=== PATIENT | female | born 1975 | race American Indian/Alaskan Native ===

== ENCOUNTER 2017-12-15 21:22 | Emergency (ER) | payer MEDICARE ==
--- NOTE | 2017-12-15 22:31 | XRay Report ---
FINAL REPORT PROCEDURE: XR HIP 2-3V LT TECHNIQUE: LEFT hip radiographs, AP and lateral views. HISTORY: left hip pain COMPARISON: 09/13/2015 FINDINGS: The there is osseous deformity of the proximal femur at the femoral neck region into the femoral head region. No acute fracture or dislocation is seen. Subchondral cyst formation identified in the femoral head and femoral neck region on the left. No evidence of a fracture or dislocation. IMPRESSION: Advanced degenerative arthritic changes of the left hip. No acute fracture dislocation..
--- NOTE | 2017-12-15 22:34 | XRay Report ---
FINAL REPORT PROCEDURE: XR SHOULDER 2+V LT TECHNIQUE: LEFT shoulder radiographs including AP views in internal and external rotation. CPT 63752 HISTORY: left shoulder pain COMPARISON: No prior studies are available for comparison. FINDINGS: Fracture (s) and/or Dislocation(s): None . Joint space(s): Mild spur formation off the osseous structures.. Soft tissues: Normal . Bone mineralization: Normal . Foreign bodies: None . IMPRESSION: No evidence of an acute fracture dislocation. Mild arthritis
--- NOTE | 2017-12-16 02:59 | Emergency Department Report ---
ED Extremity Problem HPI - General Chief complaint: Extremity Injury, Lower Stated complaint: L HIP L SHOULDER PAIN POPPING OUT OF PLACE Time Seen by Provider: 12/16/17 02:05 Source: patient, family Mode of arrival: Ambulatory Limitations: No Limitations, Physical Limitation - History of Present Illness Initial comments: Patient here reports that she was just diagnosed with deformity of the left hip last month. She is to believe her hip is dislocated and also left shoulder pain. Patient says she has orthopedic doctor or where she went [facility]. She said she was advised that she needs to have surgery. Her pain is 8 out of 10 to left hip and toward attend to left shoulder. Denies any numbness or T-wave to extremities. Denies tobacco pain or trauma. Patient also has blood pressure of 153/101 and has a history of arthritis and hypertension. She also has a history of genital herpes. She's had right rotator cuff surgery and a right arthroscopic knee. Pain is better at rest worse with movement. No medication taken she says she just came to the emergency room to get treated for her pain. Denies any new injuries. Pain is achy to hip and shoulder MD Complaint: joint paint, other (chronic and ongoing) -: Gradual, month(s) (patient with arthritis for many months. She has chronic pain.) Location: left, upper extremity, lower extremity, other (hip and shoulder) History of Same: Yes -: No myalgia, Yes arthralgia, No fever, No associated dyspnea, No associated chest pain Radiation: none Severity scale (0 -10): 8 Quality: aching Consistency: intermittent Improves with: rest Worsens with: weight bearing, walking Associated Symptoms: arthralgias. denies: chest pain, shortness of breath, fever, myalgias, rash - Related Data Previous Rx's Medication Instructions Recorded Last Taken Type Acetaminophen/Codeine [Tylenol #3] 1 tab PO Q6H PRN #10 tab 10/17/15 Unknown Rx Doxycycline [Vibramycin CAP] 100 mg PO Q12HR #28 capsule 10/17/15 Unknown Rx metroNIDAZOLE [Flagyl] 500 mg PO Q12HR #14 tab 10/17/15 Unknown Rx Acetaminophen/Codeine [Tylenol 1 tab PO Q6H PRN #8 tab 12/16/17 Unknown Rx /Codeine # 3 tab] Allergies Allergy/AdvReac Type Severity Reaction Status Date / Time ketorolac tromethamine Allergy Itching Verified 09/13/15 14:32 [From Toradol] tramadol Allergy Unknown Verified 09/13/15 14:32 ED Review of Systems ROS: Stated complaint: L HIP L SHOULDER PAIN POPPING OUT OF PLACE Other details as noted in HPI Comment: All other systems reviewed and negative Constitutional: no symptoms reported Respiratory: no symptoms reported Cardiovascular: denies: chest pain, palpitations, dyspnea on exertion, edema, syncope, paroxysmal nocturnal dyspnea Gastrointestinal: denies: abdominal pain, nausea, vomiting Genitourinary: denies: dysuria, hematuria, discharge Musculoskeletal: arthralgia. denies: back pain, joint swelling, myalgia Skin: denies: rash Neurological: denies: headache, numbness, paresthesias, confusion, abnormal gait , vertigo ED Past Medical Hx - Past Medical History Previous Medical History?: Yes Hx Hypertension: Yes Hx Arthritis: Yes Additional medical history: Genital Herpes - Surgical History Past Surgical History?: Yes Additional Surgical History: Right Rotator Cuff surgery. Right Arthroscopy - Social History Smoking Status: Current Every Day Smoker Substance Use Type: None - Medications Home Medications: Home Medications Medication Instructions Recorded Confirmed Last Taken Type Acetaminophen/Codeine [Tylenol #3] 1 tab PO Q6H PRN #10 tab 10/17/15 Unknown Rx Doxycycline [Vibramycin CAP] 100 mg PO Q12HR #28 capsule 10/17/15 Unknown Rx metroNIDAZOLE [Flagyl] 500 mg PO Q12HR #14 tab 10/17/15 Unknown Rx Acetaminophen/Codeine [Tylenol 1 tab PO Q6H PRN #8 tab 12/16/17 Unknown Rx /Codeine # 3 tab] ED Physical Exam - General Limitations: No Limitations, Physical Limitation General appearance: alert, in no apparent distress - Head Head exam: Present: atraumatic, normocephalic, normal inspection - Eye Eye exam: Present: normal appearance, PERRL, EOMI Pupils: Present: normal accommodation - ENT ENT exam: Present: normal exam, normal orophraynx, mucous membranes moist - Neck Neck exam: Present: normal inspection, full ROM, other (no C-spine tenderness). Absent: tenderness, lymphadenopathy - Respiratory Respiratory exam: Present: normal lung sounds bilaterally. Absent: respiratory distress, chest wall tenderness - Cardiovascular Cardiovascular Exam: Present: regular rate, normal rhythm, normal heart sounds - GI/Abdominal GI/Abdominal exam: Present: soft, normal bowel sounds. Absent: distended, tenderness, guarding, rebound, rigid - Extremities Exam Extremities exam: Present: normal inspection, full ROM, normal capillary refill , other (no clubbing, cyanosis or edema to extremities. No neurovascular compromise. +2 pulses all extremities. No bony deformities. Patient with full range of motion to hips and shoulders but reports pain with movement. +5 strength in all extremities except for left hip with +4 strength. She has chronic arthritis and ambulated with a cane and has a limp when she walks..). Absent: tenderness, pedal edema, joint swelling, calf tenderness - Back Exam Back exam: Present: normal inspection, full ROM. Absent: tenderness, CVA tenderness (R), CVA tenderness (L), muscle spasm, paraspinal tenderness, vertebral tenderness, rash noted - Neurological Exam Neurological exam: Present: alert, oriented X3, abnormal gait (patient with abnormal gait which is chronic from chronic arthritis in her left hip. She ambulates with a cane and has a limp.), reflexes normal, other (patient without any joint abnormality, or effusion. She has minimal tenderness to left hip without any erythema. No swelling noted to joint joints. She has good color, sensation, temperature to joints and normal range of motion to all joints except for her hip where she has pain with range of motion.). Absent: motor sensory deficit (no sensory deficit but she does have +4 strength to left lower extremity due to chronic hip pain but 5/5 strength in all other extremities.) - Psychiatric Psychiatric exam: Present: normal affect, normal mood - Skin Skin exam: Present: warm, dry, intact, normal color. Absent: rash ED Course Vital Signs 12/16/17 01:19 Temperature 99.3 F Pulse Rate 81 Respiratory 18 Rate Blood Pressure 153/101 [Left] O2 Sat by Pulse 97 Oximetry Vital Signs 12/16/17 12/16/17 12/16/17 01:19 03:17 03:36 Temperature 99.3 F Pulse Rate 81 Respiratory 18 18 Rate Blood Pressure 153/101 [Left] Blood Pressure 152/98 [Right] O2 Sat by Pulse 97 Oximetry - Reevaluation(s) Reevaluation #1: 12/16/17 03:19 Patient given Tylenol 3 2 tablets and Decadron 10 mg IM in emergency room for chronic pain. ED Medical Decision Making - Radiology Data Radiology results: report reviewed X-ray of left shoulder reveals no evidence of an acute fracture or dislocation but mild arthritis. Mild spur formation off the osseous structure. X-ray of left hip reveals advanced degenerative arthritis changes of the left hip. No acute fracture dislocation. Subchondral cyst formation identified in the femoral head which is not new patient was already diagnosed by orthopedic doctor also in the femoral neck region. - Medical Decision Making ED course:pt here for flareup of chronic left hip and shoulder pain. She has been [facility] and x-ray of her left shoulder reveals mild arthritis with some mild spur formation of the osseous structure and x-ray of the left hip reveals patient with degenerative arthritis no fracture or dislocation. She also have chronic some chondral cyst formation in the femoral head and femoral neck region on the left. Patient said that she was taking tramadol before but it didn't help her. I discussed with her that she has chronic pain and due to arthritis and weather change that can affect flareup of her pain. I discussed here could only give her medication in the emergency room and she is still have to follow up with her orthopedic doctor regarding in pain management. Patient given Tylenol No. 3 2 tablets and Decadron 10 mg IM in emergency room. She is ambulatory but uses a cane to ambulate due to chronic hip pain. Patient discharged home in stable condition with prescription for Tylenol 3 6 tablets and to follow up with orthopedic doctor. She was understanding of x-ray results and treatment plan. Pt is not allergic to Ultram she just that it doesn't work for her when she takes it. Critical care attestation.: If time is entered above; I have spent that time in minutes in the direct care of this critically ill patient, excluding procedure time. ED Disposition Clinical Impression: Arthralgia of multiple sites, Subchondral cyst, Elevated blood pressure reading with diagnosis of hypertension Osteoarthritis of multiple joints Qualifiers: Osteoarthritis type: unspecified Qualified Code(s): M15.9 - Polyosteoarthritis , unspecified Disposition: DC-01 TO HOME OR SELFCARE Is pt being admited?: No Does the pt Need Aspirin: No Condition: Stable Instructions: Osteoarthritis (ED), Arthralgia (ED), Hypertension (ED), Heart Healthy Diet (ED) Additional Instructions: Please follow up with the orthopedic doctor in 3 days and if he do not have one you can follow-up with . Howard was orthopedic doctor at [facility] The blood pressure was elevated today in emergency room. Please keep a log a few blood pressure and take to primary care visit with [facility] for evaluation. You x-ray report shows that you have subchondral cyst in your left hip area which is chronic. Take Tylenol 3 as instructed with these do not over operate heavy machinery while taking this medication Your pain is chronic and he'll need to follow-up with orthopedic and/or pain clinic. You can also have your primary care physician refer you to pain clinic for management of chronic pain due to arthritis Prescriptions: Acetaminophen/Codeine [Tylenol /Codeine # 3 tab] 1 tab PO Q6H PRN #8 tab PRN Reason: Pain Referrals: PRIMARY CAREMD [Primary Care Provider] - 2-3 Days ERIKA BROWN MD [Staff Physician] - 2-3 Days Forms: Accompanied Note
[2017-12-16] MEDS ORDERED: DECADRON IM STA (03:11)
[2017-12-16] MEDS ORDERED: TORADOL IM ONE (03:11)
[2017-12-16] MEDS ORDERED: TYLENOL #3 PO ONE (03:12)
[2017-12-16] MEDS ORDERED: DECADRON ONE (03:20)
[2017-12-16 03:37] VITALS: BP 152/98
== END 2017-12-16 03:47 | disposition home or self-care (01) ==
LOC: ED 21:22
DX: M15.9 Polyosteoarthritis, unspecified (principal); M25.50 Pain in unspecified joint; I10 Essential (primary) hypertension; F17.200 Nicotine dependence, unspecified, uncomplicated
CPT/HCPCS: 73030; 73502; 96372; 99283; J1100

== ENCOUNTER 2018-05-18 17:09 | Emergency (ER) | payer MEDICARE ==
[2018-05-18] MEDS ORDERED: TORADOL IM ONE (20:25)
--- NOTE | 2018-05-18 20:30 | Emergency Department Report ---
ED General Adult HPI - General Chief complaint: Pain General Stated complaint: CHEST PAIN Time Seen by Provider: 05/18/18 20:04 Source: patient Mode of arrival: Ambulatory Limitations: No Limitations - History of Present Illness Initial comments: 43-year-old Lisa female comes in complaining of generalized pain. Patient reports she has a history of chronic arthritis in her back knees hip. Patient also reports that she has intermittent chest pain that has come and gone on the right side states that when she stretches she'll get pain under her right breast. Patient reports she's been trying to contact her primary care provider which she has not been able to the last 2 months. She has stopped on a pain management. She is requesting a Toradol injection for pain management. Patient reports that she has taken in the past without any problems and requests have it removed from her allergy list. -: month(s) (1) Location: back, lower extremity (left hip, left knee) Consistency: constant Improves with: medication Worsens with: immobilization, movement Associated Symptoms: denies other symptoms Treatments Prior to Arrival: none - Related Data Previous Rx's Medication Instructions Recorded Last Taken Type Acetaminophen/Codeine [Tylenol #3] 1 tab PO Q6H PRN #10 tab 10/17/15 Unknown Rx Doxycycline [Vibramycin CAP] 100 mg PO Q12HR #28 capsule 10/17/15 Unknown Rx metroNIDAZOLE [Flagyl] 500 mg PO Q12HR #14 tab 10/17/15 Unknown Rx Acetaminophen/Codeine [Tylenol 1 tab PO Q6H PRN #8 tab 12/16/17 Unknown Rx /Codeine # 3 tab] Ibuprofen [Motrin 800 MG tab] 800 mg PO Q8HR PRN #60 tablet 05/18/18 Unknown Rx Allergies Allergy/AdvReac Type Severity Reaction Status Date / Time ketorolac tromethamine Allergy Itching Verified 09/13/15 14:32 [From Toradol] tramadol Allergy Unknown Verified 09/13/15 14:32 ED Review of Systems ROS: Stated complaint: CHEST PAIN Other details as noted in HPI Comment: All other systems reviewed and negative Musculoskeletal: back pain, arthralgia ED Past Medical Hx - Past Medical History Hx Hypertension: Yes Hx Arthritis: Yes Additional medical history: Genital Herpes - Surgical History Additional Surgical History: Right Rotator Cuff surgery. Right Arthroscopy - Social History Smoking Status: Current Some Day Smoker Substance Use Type: None - Medications Home Medications: Home Medications Medication Instructions Recorded Confirmed Last Taken Type Acetaminophen/Codeine [Tylenol #3] 1 tab PO Q6H PRN #10 tab 10/17/15 Unknown Rx Doxycycline [Vibramycin CAP] 100 mg PO Q12HR #28 capsule 10/17/15 Unknown Rx metroNIDAZOLE [Flagyl] 500 mg PO Q12HR #14 tab 10/17/15 Unknown Rx Acetaminophen/Codeine [Tylenol 1 tab PO Q6H PRN #8 tab 12/16/17 Unknown Rx /Codeine # 3 tab] Ibuprofen [Motrin 800 MG tab] 800 mg PO Q8HR PRN #60 tablet 05/18/18 Unknown Rx ED Physical Exam - General Limitations: No Limitations General appearance: alert, in no apparent distress - Head Head exam: Present: atraumatic, normocephalic - Eye Eye exam: Present: EOMI - ENT ENT exam: Present: mucous membranes moist - Neck Neck exam: Present: full ROM - Respiratory Respiratory exam: Present: normal lung sounds bilaterally. Absent: respiratory distress - Cardiovascular Cardiovascular Exam: Present: regular rate, normal rhythm. Absent: systolic murmur, diastolic murmur, rubs, gallop - Extremities Exam Extremities exam: Present: normal inspection, full ROM - Back Exam Back exam: Present: paraspinal tenderness, vertebral tenderness - Neurological Exam Neurological exam: Present: alert, oriented X3 - Psychiatric Psychiatric exam: Present: normal affect, normal mood - Skin Skin exam: Present: warm, dry, intact, normal color. Absent: rash ED Course Vital Signs 05/18/18 17:45 Temperature 98.0 F Pulse Rate 83 Respiratory 20 Rate Blood Pressure 154/98 O2 Sat by Pulse 99 Oximetry ED Medical Decision Making - Medical Decision Making Patient has been evaluated by this provider in fast track. Toradol 30 mg IM requested by patient for pain management Discharge patient on ibuprofen 800 mg every 8 hours when necessary. Referral to primary care, referral to orthopedics, referral to pain management. Critical care attestation.: If time is entered above; I have spent that time in minutes in the direct care of this critically ill patient, excluding procedure time. ED Disposition Clinical Impression: Osteoarthritis Qualifiers: Osteoarthritis location: multiple joints Osteoarthritis type: primary Qualified Code(s): M15.0 - Primary generalized (osteo)arthritis Disposition: TO HOME OR SELFCARE Is pt being admited?: No Does the pt Need Aspirin: No Condition: Stable Instructions: Chronic Back Pain (ED), Chronic Pain (ED), Osteoarthritis (ED), Degenerative Disc Disease (ED) Additional Instructions: Please take pain medication as prescribed. Please follow up with primary care, orthopedics, pain management for treatment of her chronic osteoarthritis. Prescriptions: Ibuprofen [Motrin 800 MG tab] 800 mg PO Q8HR PRN #60 tablet PRN Reason: Pain , Severe (7-10) Referrals: JOYCE BROWN NP [Primary Care Provider] - 3-5 Days MAIRA SCOTT MD [Staff Physician] - 3-5 Days LUCIO GRAY JR, MD [Staff Physician] - 3-5 Days ORLANDO HINTON MD [Staff Physician] - 3-5 Days [facility] [Provider Group] - 3-5 Days [facility] [Provider Group] - 3-5 Days Forms: Work/School Release Form(ED), Accompanied Note
[2018-05-18 20:48] VITALS: BP 150/92
== END 2018-05-18 20:51 | disposition home or self-care (01) ==
LOC: ED 17:09
DX: M15.0 Primary generalized (osteo)arthritis (principal); I10 Essential (primary) hypertension; M19.90 Unspecified osteoarthritis, unspecified site; F17.200 Nicotine dependence, unspecified, uncomplicated; Z79.899 Other long term (current) drug therapy; Z88.6 Allergy status to analgesic agent
CPT/HCPCS: 93005; 93010; 96372; 99282; J1885

== ENCOUNTER 2018-12-05 12:41 | Outpatient (CLI) | payer MEDICARE ==
--- NOTE | 2018-12-05 21:12 | XRay Report ---
PROCEDURE: XR SPINE LUMBOSACRAL 4+V, XR HIP 2-3V LT, XR SPINE CERVICAL 4-5V TECHNIQUE: 7 view cervical spine, 5 views lumbar spine, AP pelvis and 2 views left hip HISTORY: M54.5 LOW BACK PAIN , neck pain, left hip pain COMPARISONS: Left hip x-ray 12/15/2017 FINDINGS: Cervical spine images demonstrate degenerative osteophytic spurring at C4-C5 and C5-C6. Spinal laminar line is not disrupted. Prevertebral soft tissues are normal. Cervicothoracic junction is intact. Patient's priscila obscure the upper cervical spine on the AP rejection. There is mild facet osteoarthritis. Mild uncovertebral hypertrophy. Incidentally identified azygos lobe. Significant right greater than left C5/C6 bony foraminal encroachment due to large posterior osteophy te. The remaining neural foramina are widely patent. C1 lateral masses align normally on C2. The odontoid is obscured despite open-mouth attempt. Lumbosacral spine images demonstrate no scoliosis. There is fairly significant right L5/S1 degenerati ve facet osteoarthritis incompletely characterized. There are hypoplastic 12th ribs. SI joints are open. Sacral arches are intact. There is mild facet osteoarthritis. No compression fracture. Minimal degenerative spurring of the marginal vertebral bodies. No spondylolisthesis. AP pelvis and 2 views of the left hip demonstrate advanced left hip osteoarthritis, progressed since 2018 with [id number] appearance, superior subluxation, subchondral cysts, marginal osteophyte and c oxa vera. Right hip demonstrates mild degenerative disease. No disruption of the bony pelvic ring. Medial corti bakari periosteal thickening. IMPRESSION: Bilateral C5/C6 right greater than left bony foraminal encroachment due to large posterior osteophyte . Correlate with clinical symptoms. Mild degenerative spurring lower cervical spine. Incompletely imaged odontoid tip. Right L5/S1 advanc ed degenerative arthritis incompletely characterized. No scoliosis or pars defect. No spondylolisthes is or compression fracture. Progressive left hip advanced osteoarthritis. This document is electronically signed by Tori Marquez MD., December 05 2018 09:10:57 PM ET
== END 2018-12-05 12:42 | disposition home or self-care (01) ==
LOC: XRAY 12:41
PROVIDERS: ATTEND Orthopaedic Surgery
DX: M16.0 Bilateral primary osteoarthritis of hip (principal); M46.02 Spinal enthesopathy, cervical region; M25.78 Osteophyte, vertebrae; M47.817 Spondylosis without myelopathy or radiculopathy, lumbosacral region; I10 Essential (primary) hypertension
CPT/HCPCS: 72050; 72110